=== PATIENT | male | born 1955 | race Caucasian/White ===

== ENCOUNTER 2018-03-04 18:54 | Emergency (ER) | payer OTHER, SELFPAY ==
[2018-03-04 19:11] VITALS: BP 165/86; PULSE 56; RESP 20; TEMP 36.5; O2SAT 96; BMI 28.8
--- NOTE | 2018-03-04 19:47 | DI.RAD.S_ITS ---
PROCEDURE: XR LUMBAR SPINE 2-3V INDICATIONS: fall with midline lumbar pain TECHNIQUE: 3 views of the lumbar spine were acquired. COMPARISON: None. FINDINGS: Bones: 5 [id number] vertebrae are present. There is normal bony alignment. No acute vertebral body compression fractures. A prior L1 moderate anterior wedge compression fracture was also present in June of 2017 without worsening . No suspicious bony lesions. Soft tissues: Overlying bowel gas pattern is normal. No suspicious soft tissue calcifications. IMPRESSION: Moderately severe degenerative disc disease and facet osteoarthritis along the lumbosacral spine. Previously present L1 moderate compression fracture is stable over time from at least June of last year. No acute trauma found. Dictated by: Willie Paez M.D. on 03/04/2018 at 20:19 Approved by: Willie Paez M.D. on 03/04/2018 at 20:20
--- NOTE | 2018-03-04 19:57 | ED_ITS ---
HPI - Back Pain/Injury General Chief Complaint: Trauma Stated Complaint: PAIN IN LOWER BACK Time Seen by Provider: 03/04/18 19:10 Source: patient Mode of arrival: ambulatory Limitations: no limitations History of Present Illness HPI Narrative: Patient presents to the emergency department today with a chief complaint of midline back pain after mechanical fall resulted in him falling backwards onto concrete. He denies any head or neck pain. He denies any other injuries and states his only problem is his back. He denies any numbness, tingling or weakness. He denies any trouble with bowel or bladder control. Additionally he states he is a diabetic and had his medications emy TAYLOR Complaint: back pain and back injury Onset (ago): minute(s) Duration: constant Similar Symptoms Previously: Yes Location: lumbar spine Severity: moderate Quality: sharp Radiation: none Relieving factors: immobilization Exacerbating factors: movement Context: fall Associated symptoms: denies other symptoms Related Data Home Medications Medication Instructions Recorded Confirmed gabapentin [Neurontin] 300 mg PO TID #0 06/20/17 hydrochlorothiazide 25 mg PO QDAY #0 06/20/17 ibuprofen 800 mg PO TID #0 06/20/17 lisinopril 10 mg PO QDAY #0 06/20/17 perphenazine 8 mg PO BID #0 06/20/17 pravastatin 20 mg PO HS #0 06/20/17 metformin [Glucophage XR] 500 mg PO QDAY #0 12/20/17 Previous Rx's Medication Instructions Recorded oxycodone-acetaminophen [Percocet] 1 - 2 tab PO Q4HP PRN #10 tab 12/20/17 gabapentin 300 mg PO TID 14 Days #42 cap 03/04/18 hydrochlorothiazide 25 mg PO DAILY #14 tab 03/04/18 ibuprofen 600 mg PO QID PRN #20 tab 03/04/18 lisinopril 10 mg PO DAILY #14 tab 03/04/18 metformin 500 mg PO DAILY #14 tab 03/04/18 perphenazine 8 mg PO BID 14 Days #28 tab 03/04/18 pravastatin 20 mg PO BEDTIME #14 tab 03/04/18 Allergies Allergy/AdvReac Type Severity Reaction Status Date / Time No Known Drug Allergies Allergy Verified 03/04/18 20:26 Review of Systems Review of Systems All systems reviewed & are unremarkable except as noted in HPI and below Constitutional Denies chills, Denies fever(s), Denies lethargy and Denies weakness Eyes Denies change in vision, Denies eye discharge, Denies irritation and Denies loss of vision ENT Ears, Nose, Mouth, and Throat: Denies change in voice, Denies neck pain and Denies sore throat Cardiovascular Denies chest pain, Denies irregular heart rhythm, Denies lightheadedness, Denies palpitations, Denies dyspnea, Denies dyspnea on exertion and Denies orthopnea Respiratory Denies cough, Denies dyspnea, Denies dyspnea on exertion and Denies wheezing Gastrointestinal Gastrointestinal: Denies abdominal pain, Denies change in bowel habits, Denies diarrhea, Denies nausea and Denies vomiting Genitourinary Denies hematuria, Denies flank pain, Denies urinary incontinence and Denies urinary urgency Musculoskeletal Reports back pain and Denies neck pain Integumentary/Breasts Denies pruritus, Denies erythema, Denies rash and Denies wounds Neurologic Denies confusion, Denies loss of vision and Denies weakness Psychiatric Reports anxiety, Denies confusion, Denies depression, Reports difficulty concentrating, Reports paranoia, Denies homicidal ideation and Denies suicidal ideation Endocrine Denies palpitations Hematologic/Lymphatic Denies easy bruising Allergic/Immunologic Denies wheezing PFSH Social History Smoking Status: Current every day smoker Exam Narrative Exam Narrative: Pleasant but disheveled 62-year-old male. Obviously in a bit of discomfort but no significant distress Initial Vital Signs Initial Vital Signs: Vital Signs Temperature 97.7 F 03/04/18 19:11 Pulse Rate 56 L 03/04/18 19:11 Respiratory Rate 20 03/04/18 19:11 Blood Pressure 165/86 H 03/04/18 19:11 Pulse Oximetry 96 03/04/18 19:11 Const General: cooperative, No comfortable, well developed, in distress and anxious Nutritional Appearance: well nourished Orientation: alert, awake, oriented x3 and not confused [facility] Head: normocephalic and atraumatic Ears: external ears normal and TM's normal bilaterally Nose: external nose normal and No nasal discharge Face and sinus: sinuses nontender, face symmetric, no sinus tenderness and No dry mucous membranes Mouth: oral mucosae normal and moist mucous membranes Teeth and gingiva: dentition normal Throat: tonsils normal and uvula midline Neck Neck: normal visual inspection, trachea midline, No lymphadenopathy, No midline deformity and No JVD Lymphatic: No lymphedema Resp Effort & Inspection: normal respiratory effort, able to speak in complete sentences, no respiratory distress and no use of accessory muscles Auscultation: clear to auscultation bilaterally, no rales, no rhonchi and no wheezes GI Inspection: non-distended Palpation: soft, no hepatosplenomegaly, No guarding, No pulsatile mass and No tender Auscultation: normal bowel sounds Back/Spine/Pelvis Back: normal to inspection Cervical Spine: normal cervical lordosis and cervical ROM normal Thoracic/Lumbar Spine: thoraco-lumbar ROM normal and lumbar spinal tenderness Sacroiliac Joints: nontender Skin General: no rashes or lesions noted, No jaundice and No petechiae Other: Multiple tattoos Neuro General: alert, awake, oriented x3, gait normal and no focal motor deficits Speech: speech normal Motor: muscle tone normal throughout and strength 5/5 throughout Sensory Exam: no sensory deficits noted DTR's: Rt Patellar: 1+ and Lt Patellar: 1+ Extrem General: full ROM, no clubbing, cyanosis or edema, no pedal edema and no calf tenderness Psych Appearance: grossly normal and disheveled Mental Status: mental status grossly normal Speech and Movement: pressured speech Course Orders Ordered: ED Orders 03/04/18 19:47 XR lumbar spine 2-3V Stat Vital Signs - 8 hr 03/04/18 19:11 03/04/18 20:35 Temperature 97.7 F Pulse Rate 56 L 60 Respiratory Rate 20 14 Blood Pressure 165/86 H Blood Pressure [Right Arm] 149/54 H Pulse Oximetry 96 94 MDM - Back Pain/Injury Differential Diagnosis Differential diagnosis: Likely lumbar radiculopathy, strain of lumbar region and thoracic back pain Medical Records Attestation: I reviewed the patient's medical records. Imaging Data Xray LSpine: Attestation: I personally reviewed and interpreted this imaging study as follows: My impression: NAP Radiologist's impression: PROCEDURE: XR LUMBAR SPINE 2-3V INDICATIONS: fall with midline lumbar pain TECHNIQUE: 3 views of the lumbar spine were acquired. COMPARISON: None. FINDINGS: Bones: 5 [id number] vertebrae are present. There is normal bony alignment. No acute vertebral body compression fractures. A prior L1 moderate anterior wedge compression fracture was also present in June of 2017 without worsening . No suspicious bony lesions. Soft tissues: Overlying bowel gas pattern is normal. No suspicious soft tissue calcifications. IMPRESSION: Moderately severe degenerative disc disease and facet osteoarthritis along the lumbosacral spine. Previously present L1 moderate compression fracture is stable over time from at least June of last year. No acute trauma found. Dictated by: Willie Paez M.D. on 03/04/2018 at 20:19 Approved by: Willie Paez M.D. on 03/04/2018 at 20:20 [facility] Narrative Medical decision making narrative: No concerning physical exam findings, unchanged x-ray. Patient states he is out of his chronic medications which are largely psychiatric, blood pressure, cholesterol, and diabetic medications. I refilled these for 2 weeks Discharge Plan Departure Patient Disposition: Home, Self-Care Clinical Impression: Lumbar contusion Discharge Date/Time: 03/04/18 20:37 Interventions: ED Discharge Assessment Last Done: 03/04/18 20:36 Instructions: Low Back Pain Activity Restrictions/Additional Instructions: *You have been diagnosed with [ back pain ] *What to do: *Take medications as directed *Follow up with your primary care provider in 2-3 days *Return to ER if you should have any new, worsening or concerning symptoms Prescriptions: New gabapentin 300 mg capsule 300 mg PO TID 14 Days Qty: 42 RF: 0 lisinopril 10 mg tablet 10 mg PO DAILY Qty: 14 RF: 0 pravastatin 20 mg tablet 20 mg PO BEDTIME Qty: 14 RF: 0 hydrochlorothiazide 25 mg tablet 25 mg PO DAILY Qty: 14 RF: 0 ibuprofen 600 mg tablet 600 mg PO QID PRN (Reason: pain) Qty: 20 RF: 0 perphenazine 8 mg tablet 8 mg PO BID 14 Days Qty: 28 RF: 0 metformin 500 mg tablet extended release 24hr 500 mg PO DAILY Qty: 14 RF: 0 No Action lisinopril 20 MG tablet 10 mg PO QDAY Qty: 0 RF: 0 gabapentin [Neurontin] 300 MG capsule 300 mg PO TID Qty: 0 RF: 0 pravastatin 20 MG tablet 20 mg PO HS Qty: 0 RF: 0 hydrochlorothiazide 25 MG tablet 25 mg PO QDAY Qty: 0 RF: 0 ibuprofen 800 MG tablet 800 mg PO TID Qty: 0 RF: 0 perphenazine 8 MG tablet 8 mg PO BID Qty: 0 RF: 0 metformin [Glucophage XR] 500 MG tablet extended release 24 hr 500 mg PO QDAY Qty: 0 RF: 0 oxycodone-acetaminophen [Percocet] 5 MG/325 MG tablet 1 - 2 tab PO Q4HP PRNQty: 10 RF: 0
[2018-03-04 20:35] VITALS: BP 149/54; PULSE 60; RESP 14; O2SAT 94
== END 2018-03-04 20:37 | disposition home or self-care (01) ==
PROVIDERS: Emergency Provider Emergency Medicine
DX: S30.0XXA Contusion of lower back and pelvis, initial encounter (principal); W19.XXXA Unspecified fall, initial encounter
CPT/HCPCS: 72100; 99282; 99283